=== PATIENT | female | born 1990 | race Caucasian/White ===

== ENCOUNTER → 2025-01-02 13:57 | Outpatient (REF) | payer OTHER, SELFPAY | LOC: PNTC 13:57 | PROVIDERS: ATTENDING PHYSICIAN Student in an Organized Health Care Education/Training Program | DX: E28.2 Polycystic ovarian syndrome (principal); O99.212 Obesity complicating pregnancy, second trimester | CPT/HCPCS: 76805 ==

== ENCOUNTER → 2025-01-28 09:13 | Outpatient (REF) | payer OTHER, SELFPAY | LOC: PNTC 09:13 | PROVIDERS: ATTENDING PHYSICIAN Student in an Organized Health Care Education/Training Program | DX: E28.2 Polycystic ovarian syndrome (principal); O99.212 Obesity complicating pregnancy, second trimester | CPT/HCPCS: 76811; 76817 ==

== ENCOUNTER → 2025-03-18 10:26 | Outpatient (REF) | payer OTHER, SELFPAY | LOC: PNTC 10:26 | PROVIDERS: ATTENDING PHYSICIAN Obstetrics & Gynecology | DX: O99.210 Obesity complicating pregnancy, unspecified trimester (principal) | CPT/HCPCS: 76816 ==